=== PATIENT | female | born 1985 | race Caucasian/White ===

== ENCOUNTER 2018-05-18 10:27 | Emergency (ER) | payer OTHER, SELFPAY ==
[2018-05-18 10:27] VITALS: BP 127/81; PULSE 96; RESP 17; TEMP 36.3; O2SAT 96; BMI 43.3
--- NOTE | 2018-05-18 10:45 | CT_ITS ---
STUDY: CT ABDOMEN AND PELVIS WITHOUT CONTRAST REASON FOR EXAM: Female, 32 years old. Right lower quadrant pain. Elevated white count and nausea. RADIATION DOSAGE (If Supplied By Facility): CTDIvol = ( 8.65 ) mGy, DLP = ( 425.80 ) mGycm TECHNIQUE: Transaxial images were obtained from the dome of the diaphragm to the symphysis pubis without oral contrast, and without intravenous contrast. Sagittal and coronal images were reconstructed. Individualized dose optimization techniques were used for this CT. COMPARISON: None. FINDINGS: The visualized lung bases are unremarkable. The visualized portions of the heart are within normal limits. Normal liver. Normal gallbladder and extrahepatic biliary system. Normal spleen. Normal pancreas. Normal bilateral adrenal glands. Normal right kidney. Normal left kidney. Normal visualized stomach. Normal small intestine. Normal colon. The appendix is visualized and appears normal. Normal abdominal aorta. Normal inferior vena cava. There is borderline retroperitoneal lymphadenopathy with enlarged nodes no greater than 10mm in the short axis diameter. Normal urinary bladder. There is a 7.5 cm x 10.7 cm x 10 cm soft tissue mass arising in the lower anterior aspect of the abdomen extending into the pelvis. This lies anterior to the uterus and superior to the urinary bladder. Correlation with ultrasound is recommended. This may represent a large ovarian mass most likely arising from the right side. The left ovary measures 3.9 cm x 3.2 cm. Follicles are seen within it. Normal abdominal wall. Normal osseous structures. CT/Abdomen/Pelvis without Cont IMPRESSION: Large soft tissue mass arising from the lower anterior abdomen and pelvis as described. Correlation with ultrasound is recommended. Electronically Signed: Zach Marie MD at 12:42 EST Tel [phone], Service support ,
--- NOTE | 2018-05-18 10:48 | ED.DCSUM_ITS ---
- ER Visit Summary Date of Service: 05/18/18 Chief Complaint: Acute abdominal pain History of Present Illness: The patient is a 32 F Patient states that last evening she developed pain in the right lower quadrant radiating to her back. States that it went away and then returned this morning around 0500 hours. She is tried Tylenol. She tried some milk of magnesia. She has had nausea and vomiting. No prior abdominal surgeries. She notes her last bowel movement was 2 days ago. She denies any urinary symptoms. She notes that it was painful for her to walk because she could not stand up. Physical Examination: Afebrile vital signs are stable Gen: Well-nourished well-developed Head: Normocephalic atraumatic Eyes: Perrl EOMI ENT: TMs clear no rhinorrhea moist mucous membranes Neck: Supple no lymphadenopathy no JVD nontender CVS: Regular rate rhythm no murmurs normal S1-S2 Respiratory: No distress clear to auscultation bilaterally chest nontender Abdomen: Soft there is mild tenderness to palpation in the suprapubic right lower quadrant region without guarding or rebound nondistended normal bowel sounds no masses Back: Nontender Extremity: Nontender no edema Skin: Normal color no rash Neuro: alert orientated ?3 CN II-XII intact normal strength sensation reflexes gait cerebellar Psych: Normal affect normal mood Test Results: CBC with a white count of 14.1. Urinalysis showed 1+ bacteria but no overt infection or significant contamination. Test was negative. CT of the abdomen pelvis without contrast demonstrated a masslike structure probably coming from the right ovary. A pelvic ultrasound was obtained which demonstrated a 10.3 x 7.9 x 7.3 cm septated cyst on the right. There was difficult to decipher normal ovarian tissue but there was blood flow in the area. The patient has been resting comfortably. She does not appear to have o bvious torsion at this time. I spoke with Dr. De La Cruz who will plan on seeing the patient tomorrow. Patient will be given torsion instructions. Impression: 1. Acute pelvic pain 2. Right ovarian mass This note was generated with [employer] software. It may contain incorrect words, spelling, and punctuation that were not noted in review of the chart prior to signing ED Disposition - Plan for ED Patient: Disposition: Home or Assisted Living Chief Complaint: Abd Pain Instructions: ED Cyst Ovarian Referrals: Dianna Pinto MD [Primary Care Provider] - Sharmila Diaz MD [STAFF PHYSICIAN] - As soon as possible Additional Instructions: If your pain becomes severe please return to the emergency department immediately
[2018-05-18 11:06] LABS: Mucous, Urine 0 SEEN /hpf (<or=2+); Red Blood Cells-Urine 0 SEEN /hpf (0-5)
[2018-05-18 11:08] LABS: Absolute Lymphocyte Count 1.14 X10^3/ul (0.83-4.51); Absolute Neutrophil Count 12.7 X10^3/uL (2.0-7.7); Basophil# 0.02 X10^3/uL; Basophil% 0.1 % (0-1); Hematocrit 39.4 % (37-47); Hemoglobin 12.8 g/dl (12.0-15.0); Lymphocyte # 1.14 X10^3/ul (4.0); Lymphocyte % 8.1 % (19-41); Mean Corp Hgb Conc 32.5 g/gl (32-36); Mean Corpuscular Hgb 29.5 pg (27.0-32.0); Mean Corpuscular Volume 90.8 fL (81-99); Mean Platelet Vol. 10.3 fl (6.2-12.0); Monocyte# 0.23 X10^3/uL; Monocyte% 1.6 % (0-10); Neutrophil # 12.66 X10^3/uL (2.7-7.7); Neutrophil % 90.1 % (47-70); Platelet Count 312 K/mm3 (150-450); RBC Distribution Width CV 13.1 % (11.6-14.6); RBC Distribution Width SD 43.6 fl (35.1-43.9); Red Blood Count 4.34 M/mm3 (4.2-5.4); White Blood Count 14.1 K/mm3 (4.4-11.0)
[2018-05-18 11:10] LABS: POSITIVE COUNT NO; POSITIVE DIFFERENTIAL NO; POSITIVE MORPHOLOGY NO
[2018-05-18 11:12] LABS: Color, Urine Yellow (Yellow)
[2018-05-18 11:13] LABS: Specific Gravity, Urine 1.005 (1.002-1.030); Urine Clarity Sl Cldy (Clear)
[2018-05-18 11:14] LABS: Leukocyte Esterase-Dipstick Trace /ul (Negative); Nitrite-Dipstick Negative (Negative); Protein-Dipstick 15 mg/dl (Negative)
[2018-05-18 11:14] LABS: Anion Gap 10 (5-15); BUN 15 mg/dL (7-18); BUN/Creat Ratio 18.5 RATIO (10-20); Chloride 103 mmol/L (98-107); Creatinine, Serum 0.81 mg/dL (0.55-1.02); EST Glomerular Filtration Rate 87 mL/min (>60); Est Glom Filt Rate - Afr Amer 105 mL/min (>60); Estimated Creatinine Clearance 153.31 ml/min; Glucose 119 mg/dL (74-106); Potassium 3.6 mmol/L (3.5-5.1); Sodium Level 137 mmol/L (136-145)
[2018-05-18 11:15] LABS: Glucose, Dipstick NEGATIVE (Normal); Urine Bilirubin Dipstick Negative (Negative); Urine Urobilinogen Normal (Normal)
[2018-05-18 11:16] LABS: Occult Blood-Urine 250 /ul (Negative)
[2018-05-18 11:18] LABS: Ketone-Dipstick 150 mg/dl (Negative)
[2018-05-18] MEDS: 0.9% Normal Saline 1,000 ML 250 ML IV (11:22)
[2018-05-18] MEDS: Ondansetron 4 MG/2 ML Vial IV (11:22)
[2018-05-18] MEDS: Ketorolac 30 MG/ML Syringe IV (11:22)
[2018-05-18 11:23] LABS: White Blood Cells 0-5 SEEN /hpf (0-5)
[2018-05-18 11:24] LABS: Amorphous Sediment 2+; Bacteria 1+ /hpf (None Seen); Squamous Epithelial Cells - UA 0-5 SEEN /hpf (5-10)
[2018-05-18 11:36] LABS: Pregnancy, Serum, hCG Quali. NEGATIVE Negative (0-9 Nonpreg)
--- NOTE | 2018-05-18 12:47 | US_ITS ---
STUDY: ULTRASOUND TRANSVAGINAL CLINICAL: Female, [address] RLQ PAIN X 2 DAYS INTERMITTENT ELEVATED WBC COUNT NAUSEA TECHNIQUE: Transvaginal COMPARISON: CT abdomen and pelvis without contrast May 18, 2018 FINDINGS: Normal uterine size measuring 6.3 x 4.9 x 3.2 cm. It is retroverted. There are no myometrial masses. Normal endometrial thickness measuring 12 mm. There are no endometrial masses, and there is no fluid in the endometrial cavity. Normal uterine cervix. Nabothian cysts noted. Normal right ovary, measuring 11.4 x 9.5 x 7.8 cm. There is a septated cyst measuring approximately 10.3 x 7.9 x 7.3 cm. On several images it appears there is communication between cystic areas. There does appear blood flow around this tissue but is difficult to identify normal ovarian tissue. Normal left ovary, measuring 4.3 x 3.6 x 2.6 cm cm. There is a dominant cyst measuring 2.9 x 2.3 x 2.3 cm. There is blood flow seen in the subjacent left ovary by Doppler. Mild fluid in the pelvis. US/Transvaginal Non- IMPRESSION: There is a large cystic lesion seen in the right adnexa with an apparent septation which correlates with the prior CT exam. On CT exam it had a Hounsfield unit measurement of 23 which suggests internal proteinaceous content, possible blood. The right ovary cannot be from this structure nor seen is a cyst separate structure and is not clearly identified. On several images it appears there is communication between the cystic structures, perhaps there is hydrosalpinx. The size of this lesion and complicating features warrants further evaluation. MRI would be most helpful in further investigation. The contralateral left ovary also demonstrated a cystic lesion with increased Hounsfield units on CT exam Electronically Signed: Magdalene Weiss MD at 14:43 EST , Service support ,
[2018-05-18 15:03] VITALS: BP 115/80; PULSE 83; RESP 17; O2SAT 98
== END 2018-05-18 15:45 | disposition home or self-care (01) ==
PROVIDERS: Emergency Provider Emergency Medicine; Family Provider Family Medicine; PCP Family Medicine
DX: R10.2 Pelvic and perineal pain (principal); N83.201 Unspecified ovarian cyst, right side; R11.2 Nausea with vomiting, unspecified
CPT/HCPCS: 74176; 76830; 80048; 81001; 84703; 85025; 93976; 96361; 96374; 96375; 99283; J7030; A4216; J2405

== ENCOUNTER 2018-06-30 12:00 | Emergency (ER) | payer OTHER, SELFPAY ==
[2018-06-30 12:02] VITALS: BP 127/100; PULSE 100; RESP 16; TEMP 36.5; O2SAT 98; BMI 27.4
--- NOTE | 2018-06-30 12:33 | ED.VISSUMM ---
- ER Visit Summary Date of Service: 06/30/18 Chief Complaint: [] Depressed suicidal ideation concern nonverbal during counseling session History of Present Illness: The patient is a 32 F [] the patient has a history of depression anxiety apparently in some type of a cognitive stress disorder that causes her to basically get very depressed where she will not speak to people she refers to come to get by writing. She apparently went to the [facility] counseling center to see her counselors today she was not in any distress, she began talking to them but later refused to talk to them and begin writing down short phrases there was indication on the part of the counts of the patient may be suicidal then the patient simply stopped responding or writing anything would just stare out into space at which time she was brought to the hospital On arrival her vital signs are unremarkable 120/80 she is afebrile she is looking around she actually got out of the wheelchair got undressed and into the gown was initially community with nurses and refused to speak to anybody chose to write things down a piece of paper, she indicates to be of this paper communication that she is having her cognitive stress process affect her to where she does not feels if she can speak, she has no complaints she does admit she has thought of suicide, she also indicates she has been quite worried and nervous over the fact that she is been having some pelvic pain and needs to have some tests done to determine if she has a serious condition such as cancer and that procedure is rescheduled for a few weeks from now, in addition we try to obtain history from the [facility] counselor who came with her who is actually a caser up and will try to obtain additional information from the [facility] counseling system the patient suffered no recent type of trauma or change in any of her health status Physical Examination: [] v Signs are as above General, no distress resting comfortably HEENT is generally unremarkable The neck is supple no adenopathy Cardiovascular, regular rate and rhythm Lungs, clear bilateral Abdomen, soft nontender Extremities, no clubbing cyanosis or edema Neurologic, awake alert answering questions appropriately initially then later she began to look about moving her extremities but would not communicate verbally prefer to write things down as above moving all 4 extremities Test Results: [] Screening labs UA and head CT unremarkable She is intermittently speaking to staff Emergency Department Course and Treatment: [] Given all the above mental health screening evaluation tests are ordered we have asked the mental health service to see her to determine best disposition options Treatment Plan: [] Disposition: [] The mental health evaluation Impression: [] History of depression suicidal ideation, nonverbal state This note was generated with [employer] dictation software. It may contain incorrect words, spelling, and punctuation that were not noted in review of the chart prior to signing ED Disposition - Plan for ED Patient: Chief Complaint: Mental Health Referrals: Dianna Pinto MD [Primary Care Provider] -
--- NOTE | 2018-06-30 12:37 | ED.DCSUM_ITS ---
- ER Visit Summary Date of Service: 06/30/18 Chief Complaint: [] Depressed suicidal ideation concern nonverbal during counseling session History of Present Illness: The patient is a 32 F [] the patient has a history of depression anxiety apparently in some type of a cognitive stress disorder that causes her to basically get very depressed where she will not speak to people she refers to come to get by writing. She apparently went to the [facility] counseling center to see her counselors today she was not in any distress, she began talking to them but later refused to talk to them and begin writing down short phrases there was indication on the part of the counts of the patient may be suicidal then the patient simply stopped responding or writing anything would just stare out into space at which time she was brought to the hospital On arrival her vital signs are unremarkable 120/80 she is afebrile she is looking around she actually got out of the wheelchair got undressed and into the gown was initially community with nurses and refused to speak to anybody chose to write things down a piece of paper, she indicates to be of this paper communication that she is having her cognitive stress process affect her to where she does not feels if she can speak, she has no complaints she does admit she has thought of suicide, she also indicates she has been quite worried and nervous over the fact that she is been having some pelvic pain and needs to have some tests done to determine if she has a serious condition such as cancer and that procedure is rescheduled for a few weeks from now, in addition we try to obtain history from the [facility] counselor who came with her who is actually a director case and will try to obtain additional information from the [facility] counseling system the patient suffered no recent type of trauma or change in any of her health status Physical Examination: [] v Signs are as above General, no distress resting comfortably HEENT is generally unremarkable The neck is supple no adenopathy Cardiovascular, regular rate and rhythm Lungs, clear bilateral Abdomen, soft nontender Extremities, no clubbing cyanosis or edema Neurologic, awake alert answering questions appropriately initially then later she began to look about moving her extremities but would not communicate verbally prefer to write things down as above moving all 4 extremities Test Results: [] Screening labs UA and head CT unremarkable She is intermittently speaking to staff Emergency Department Course and Treatment: [] Given all the above mental health screening evaluation tests are ordered we have asked the mental health service to see her to determine best disposition options Treatment Plan: [] Disposition: [] The mental health evaluation Impression: [] History of depression suicidal ideation, nonverbal state This note was generated with [employer] dictation software. It may contain incorrect words, spelling, and punctuation that were not noted in review of the chart prior to signing ED Disposition - Plan for ED Patient: Chief Complaint: Mental Health Referrals: Dianna Pinto MD [Primary Care Provider] -
--- NOTE | 2018-06-30 12:54 | CT_ITS ---
STUDY: CT BRAIN WITHOUT CONTRAST REASON FOR EXAM: Female, 32 years old. Altered mental status. Suicidal ideation. RADIATION DOSAGE (If Supplied By Facility): CTDIvol = ( 44.99 ) mGy, DLP = ( 711.75 ) mGycm TECHNIQUE: Transaxial CT imaging of the brain was performed without administration of intravenous contrast material. Individualized dose optimization techniques were used for this CT. COMPARISON: None. FINDINGS: Normal soft tissue structures. Normal calvarium. Normal size ventricles and extra-axial spaces for the patient's age. Normal white matter tracts of the cerebral hemispheres. Normal basal ganglia and thalami. Normal brainstem. Normal cerebellum. There is no intracranial hemorrhage. There are no findings of an acute ischemic infarction. Normal visualized paranasal sinuses. CT/Brain/Head without Contrast IMPRESSION: Normal unenhanced CT scan of the brain. Electronically Signed: Zach Marie MD at 13:50 EST Tel [phone], Service support ,
[2018-06-30 12:59] LABS: Absolute Lymphocyte Count 2.23 X10^3/ul (0.83-4.51); Absolute Neutrophil Count 4.3 X10^3/uL (2.0-7.7); Basophil# 0.02 X10^3/uL; Basophil% 0.3 % (0-1); Eosinophil# 0.05 X10^3/uL; Eosinophils% 0.7 % (0-5); Hemoglobin 14.1 g/dl (12.0-15.0); Lymphocyte # 2.23 X10^3/ul (4.0); Lymphocyte % 31.1 % (19-41); Mean Corp Hgb Conc 33.6 g/gl (32-36); Mean Corpuscular Volume 89.4 fL (81-99); Mean Platelet Vol. 9.7 fl (6.2-12.0); Monocyte# 0.59 X10^3/uL; Monocyte% 8.2 % (0-10); Neutrophil # 4.26 X10^3/uL (2.7-7.7); Neutrophil % 59.6 % (47-70); POSITIVE COUNT NO; POSITIVE DIFFERENTIAL NO; POSITIVE MORPHOLOGY NO; Platelet Count 290 K/mm3 (150-450); RBC Distribution Width CV 13.1 % (11.6-14.6); White Blood Count 7.2 K/mm3 (4.4-11.0)
--- NOTE | 2018-06-30 13:07 | ED.RN ---
TALKED WITH PT MOTHER WITH PERMISSION GIVEN PER PT. MOTHER STATES PT HAS BEEN UP AND DOWN. STATES PT LIVING WITH BOYFRIEND WHO HAS ISSUES HIMSELF. PT HAS TOLD MOTHER THAT SHE WOULD LIKE TO HAVE HER LIFE END.PT HAS ALSO TALKED ABOUT WANTING TO .MOTHER PHONE NUMBER IS [phone].STATES NEVER DX WITH ANYTHING BUT DEF HAS ANXIETY AND DEPRESSION
[2018-06-30 13:10] LABS: BUN 11 mg/dL (7-18); BUN/Creat Ratio 12.7 RATIO (10-20); Chloride 107 mmol/L (98-107); Creatinine, Serum 0.86 mg/dL (0.55-1.02); EST Glomerular Filtration Rate 81 mL/min (>60); Est Glom Filt Rate - Afr Amer 97 mL/min (>60); Estimated Creatinine Clearance 74.28 ml/min; Glucose 102 mg/dL (74-106); Potassium 3.8 mmol/L (3.5-5.1); Sodium Level 138 mmol/L (136-145)
[2018-06-30 13:11] LABS: Anion Gap 8 (5-15)
[2018-06-30 13:17] LABS: Pregnancy, Serum, hCG Quali. NEGATIVE Negative (0-9 Nonpreg)
--- NOTE | 2018-06-30 14:02 | ED.RN ---
[employer] OFFICER ASKED TO CALL [facility]. PT CLEAR
--- NOTE | 2018-06-30 14:04 | NURSING ---
CALLED [facility]. TALKED TO SOHA.
[2018-06-30 14:24] LABS: Amphetamine Urine VISTA NEGATIVE (<1000 ng/mL); Barbiturate Urine VISTA NEGATIVE (< 200 ng/mL); Benzodiazepine Urine VISTA NEGATIVE (< 200 ng/mL); Cocaine Urine VISTA NEGATIVE (< 300 ng/mL); Ecstacy Urine VISTA NEGATIVE (< 500 ng/mL); Methadone Urine VISTA NEGATIVE (< 300 ng/mL); PCP Urine VISTA NEGATIVE (< 25 ng/mL); THC Urine VISTA NEGATIVE (< 50 ng/mL); Vista UDS pH Range 5
--- NOTE | 2018-06-30 15:24 | NURSING ---
ADOLPH, CRISIS, CALLED. SOMEONE WILL BE OVER
--- NOTE | 2018-06-30 15:45 | NURSING ---
ADOLPH, CRISIS, HERE
--- NOTE | 2018-06-30 15:49 | ED.RN ---
PT MOTHER CALLS IN FOR UPDATE. ADOLPH FROM CRISES TALKING WITH HER. SITTER REMAINS WITH PT
[2018-06-30 15:50] VITALS: RESP 18
[2018-06-30 17:39] VITALS: BP 110/78; PULSE 76; RESP 18; O2SAT 98
[2018-06-30] MEDS: Acetaminophen 500 MG Tablet 1000 MG PO (18:32)
[2018-06-30 20:40] VITALS: BP 114/76; PULSE 67; RESP 18; O2SAT 96
--- NOTE | 2018-06-30 20:46 | ED.RN ---
PER PT REQUEST, CAR G[employer]MEZ GIVEN TO SECURITY FOR KEEPING UNTIL MOTHER CAN PICK THEM UP IN THE MORNING. MOTHER INFORMED SHE NEEDS TO BRING AN ID WITH HER FOR PICKING UP KEYS
[2018-06-30 21:18] VITALS: BP 114/76; PULSE 67; RESP 19; O2SAT 99
== END 2018-06-30 21:19 | disposition home or self-care (01) ==
PROVIDERS: Emergency Provider Emergency Medicine; Family Provider Family Medicine; PCP Family Medicine
DX: F32.9 Major depressive disorder, single episode, unspecified (principal); F41.9 Anxiety disorder, unspecified; R45.851 Suicidal ideations
CPT/HCPCS: 70450; 80048; 80307; 80320; 84703; 85025; 99282; G0480

== ENCOUNTER 2024-08-01 19:33 | Emergency (ER) | payer MEDICAID, SELFPAY ==
[2024-08-01 19:34] VITALS: BP 118/80; PULSE 81; RESP 16; TEMP 36.6; O2SAT 99; BMI 31.7
[2024-08-01] MEDS: Ondansetron ODT 4 MG Tablet PO (20:15)
--- NOTE | 2024-08-01 21:36 | EX.ED.DYSGE1 ---
HPI History of Present Illness Chief Complaint: Nausea/Vomiting Narrative Narrative: Patient is a 30-year-old female who presents to the emergency department with a chief complaint of nausea vomiting. Patient states that this started earlier this afternoon. States that earlier today she had her bottom wisdom teeth removed they gave her ibuprofen and antibiotic. States that she tried to take these and had not eaten before and developed nausea vomiting and this continued throughout the evening therefore she came here further evaluation management. [facility] Medical History Hx of benign neoplasm Home Medications ?Medication ?Instructions ?Recorded ?Last Taken ?Type clindamycin HCl 300 mg capsule 300 mg PO 3XD 08/01/24 Unknown History ibuprofen 800 mg tablet 800 mg PO Q6H PRN pain 08/01/24 Unknown History ondansetron 4 mg disintegrating 4 mg PO Q6H PRN nausea and 08/01/24 Unknown Rx tablet vomiting #30 tabs Allergy/AdvReac Type Severity Reaction Status Date / Time amoxicillin Allergy RASH Verified 08/01/24 19:36 Surgical History Hx of carpal tunnel repair Hx of wisdom tooth extraction Social History Smoking Status: Never smoker ROS ROS ED ROS Narrative Constitutional: Denies any fevers, chills, headaches, lightness, dizziness Cardiovascular: Denies chest pain or palpitations Respiratory: Denies cough shortness of breath Abdomen: Complains of nausea vomiting denies diarrhea : Denies any urinary symptoms Neurological: Denies numbness, weakness, tingling Musculoskeletal: Denies back pain Skin: Denies rashes or lesions EXAM Physical Exam Narrative Exam Narrative: General: Patient is lying in bed rest comfortably did not appear to be acute distress Head: Atraumatic, normocephalic Eyes, ears, nose, throat: PERRL bilaterally, no conjunctival injection noted, surgical site of wisdom teeth removed has clot over the site no active bleeding noted Neck: Soft, supple, trachea midline Cardiovascular: Regular rate and rhythm Respiratory: Clear to auscultation bilaterally Abdomen: Soft, nondistended, mild tenderness palpation epigastric region no rebound or guarding on exam Extremities: +5/5 strength noted in the bilateral upper and lower extremities, no pedal edema no exam Neurological: Patient following commands knew that she was at [facility] the year is 2024 Skin: Warm, dry, intact no rashes or lesions noted Const Vital Signs: 08/01/24 19:34 Temperature 97.8 F Temperature Source Oral Pulse Rate 81 Respiratory Rate 16 Blood Pressure 118/80 Blood Pressure Mean 92 Pulse Ox 99 Oxygen Delivery Method Room Air MDM MDM MDM Narrative Medical decision making narrative: Patient is a 30-year-old female who presents to the emerged part with a chief complaint of acute onset of nausea vomiting not feeling well earlier today. On the differential diagnose includes but limited to nausea vomiting secondary to viral gastroenteritis, taking antibiotics on an empty stomach. Should be given Zofran and be reevaluated. On reevaluation the patient she states that she has taken small sips but states that she has some abdominal pain and more nausea again. Will place a IV for fluids antiemetic and blood work. Once this is obtained reviewed she will be reevaluated. Patient CBC was reviewed and showed a white blood cell count of 21,000 this is likely secondary to her surgery that she had today, hemoglobin is 14, platelet count was noted to be normal at 342. Patient sodium normal at 130, potassium 4.2, creatinine normal at 0.96. Patient's AST and ALT were normal at 16 and 14 respectively, total bilirubin normal at 0.90. Patient's lipase normal at 26, urinalysis reviewed showed no evidence of infection and test was negative. Repeat abdominal exam at 10:49 PM was benign patient did tolerate oral challenge here in the emergency department. On reevaluation the patient and she is feeling better she would like to go home at this point time. She is advised to take her prescriptions as prescribed and take the medications with food. She is encouraged return with worsening symptoms or concerns otherwise she is to follow-up with her primary care physician outpatient setting. She is agreeable this plan all question concerns answered discharged home in stable condition. Lab Data Labs: Laboratory Results - last 24 hr 08/01/24 21:50 WBC 21.8 H RBC 4.78 Hgb 14.0 Hct 42.8 MCV 89.5 MCH 29.3 MCHC 32.7 RDW Std Deviation 42.1 RDW Coeff of Matt 12.9 Plt Count 342 MPV 10.1 Immature Gran % (Auto) 0.300 Neut % (Auto) 84.8 H Lymph % (Auto) 9.0 L Andrew % (Auto) 5.7 Eos % (Auto) 0.0 Baso % (Auto) 0.2 Absolute Neuts (auto) 18.5 H Absolute Lymphs (auto) 1.97 Nucleated RBC % 0 Sodium 138 Potassium 4.2 Chloride 106 Carbon Dioxide 26.0 Anion Gap 7 BUN 15 Creatinine 0.96 Estim Creat Clear Calc 71.23 Est GFR (MDRD) Af Amer 83 Est GFR (MDRD) Non-Af 69 BUN/Creatinine Ratio 15.6 Glucose 122 H Calcium 9.9 Total Bilirubin 0.90 AST 16 ALT 14 Alkaline Phosphatase 80 Total Protein 8.9 H Albumin 4.2 Globulin 4.7 H Albumin/Globulin Ratio 0.9 Lipase 26 Urine Color Yellow Urine Clarity Clear Urine pH 7.0 Ur Specific [place] 1.010 Urine Protein 15 H Urine Glucose (UA) Normal Urine Ketones Negative Urine Occult Blood 25 H Urine Nitrite Negative Urine Bilirubin Negative Urine Urobilinogen Normal Ur Leukocyte Esterase 25 H Urine RBC 0-5 SEEN Urine WBC 0-5 SEEN Ur Squamous Epith Cells 5-10 SEEN Urine Bacteria RARE Urine Mucus 0 SEEN Urine Test Negative Discharge Plan Triage Chief Complaint: Nausea/Vomiting ED Provider: Sukhdeep Neal Dx/Rx/DC Orders Clinical Impression: Nausea & vomiting, [place] teeth removed Prescriptions: New ondansetron 4 mg tablet,disintegrating 4 mg PO Q6H PRN (Reason: nausea and vomiting) Qty: 30 0RF No Action clindamycin HCl 300 mg capsule 300 mg PO 3XD ibuprofen 800 mg tablet 800 mg PO Q6H PRN (Reason: pain) Patient Comments: [NO ORIGINAL SIG] Primary Care Provider: Jaelyn Laguna Referrals: Jaelyn Laguna, [employer] [Primary Care Provider] - Activity Restrictions/Additional Instructions: Start with bland diet such as toast crackers soups and advance as tolerated. Use the prescription Zofran as prescribed. Take your other prescriptions as prescribed take these with food. Return with worsening symptoms or any concerns. Follow-up your doctor now presenting. Print Language: Khmer Disposition Disposition: Home, Self Care
[2024-08-01] MEDS: 0.9% Normal Saline (1000mL) 1,000 ML 999 ML IV (21:49)
[2024-08-01] MEDS: Metoclopramide 10 MG/2 ML Vial IV (21:49)
[2024-08-01 22:09] LABS: Mucous, Urine 0 SEEN /hpf (<or=2+)
[2024-08-01 22:17] LABS: Absolute Lymphocyte Count 1.97 X10^3/uL (0.83-4.51); Absolute Neutrophil Count 18.5 X10^3/uL (2.0-7.7); Basophil# 0.05 X10^3/uL; Basophil% 0.2 % (0-1); Hematocrit 42.8 % (37-47); Lymphocyte # 1.97 X10^3/ul (0.83-4.51); Mean Corp Hgb Conc 32.7 g/dL (32-36); Mean Corpuscular Hgb 29.3 pg (27.0-32.0); Mean Corpuscular Volume 89.5 fL (81-99); Mean Platelet Vol. 10.1 fl (6.2-12.0); Monocyte# 1.24 X10^3/uL; Monocyte% 5.7 % (0-10); NRBC Flagged by Analyzer 0 % (0-5); Neutrophil # 18.49 X10^3/uL (2.7-7.7); Neutrophil % 84.8 % (47-70); Platelet Count 342 K/mm3 (150-450); RBC Distribution Width CV 12.9 % (11.6-14.6); RBC Distribution Width SD 42.1 fl (35.1-43.9); Red Blood Count 4.78 M/mm3 (4.2-5.4); White Blood Count 21.8 K/mm3 (4.4-11.0)
[2024-08-01 22:23] LABS: Color, Urine Yellow (Yellow); Glucose, Dipstick Normal (Normal); Ketone-Dipstick Negative (Negative); Leukocyte Esterase-Dipstick 25 /ul (Negative); Nitrite-Dipstick Negative (Negative); Occult Blood-Urine 25 /ul (Negative); Protein-Dipstick 15 mg/dl (Negative); Urine Bilirubin Dipstick Negative (Negative); Urine Clarity Clear (Clear); Urine Urobilinogen Normal (Normal)
[2024-08-01 22:28] LABS: ALB/GLOB Ratio 0.9 RATIO (0.9-2.4); AST(SGOT) 16 U/L (15-37); Alanine Aminotransfer ALT/SGPT 14 U/L (13-56); Albumin, Serum 4.2 g/dL (3.2-5.0); Alkaline Phosphatase 80 U/L (45-117); Anion Gap 7 (5-15); BUN 15 mg/dL (7-18); BUN/Creat Ratio 15.6 RATIO (10-20); Calcium,Total 9.9 mg/dL (8.5-10.1); Chloride 106 mmol/L (98-107); Creatinine, Serum 0.96 mg/dL (0.55-1.02); EST Glomerular Filtration Rate 69 mL/min (>60); Est Glom Filt Rate - Afr Amer 83 mL/min (>60); Estimated Creatinine Clearance 71.23 ml/min; Globulin 4.7 g/dL (2.2-4.2); Glucose 122 mg/dL (74-106); Lipase 26 U/L (13-75); Potassium 4.2 mmol/L (3.5-5.1); Protein, Total 8.9 g/dL (6.4-8.2); Sodium Level 138 mmol/L (136-145)
[2024-08-01 22:36] LABS: Bacteria RARE /hpf (None Seen); Internal QC Validated? YES +Cl - CLEAR BKGD; Pregnancy, Urine Negative Negative; Red Blood Cells-Urine 0-5 SEEN /hpf (0-5); Squamous Epithelial Cells - UA 5-10 SEEN /hpf (5-10); White Blood Cells 0-5 SEEN /hpf (0-5)
[2024-08-01 22:48] VITALS: BP 108/66; PULSE 82; RESP 16; TEMP 37.2; O2SAT 99
[2024-08-01] MEDS: Ketorolac 30 MG/ML Syringe IV (22:52)
== END 2024-08-01 22:57 | disposition home or self-care (01) ==
PROVIDERS: Emergency Provider Emergency Medicine; PCP Nurse Practitioner Family; Visit Provider Emergency Medicine
DX: R11.2 Nausea with vomiting, unspecified (principal); Z98.890 Other specified postprocedural states
CPT/HCPCS: 80053; 81001; 81025; 83690; 85025; 96361; 96374; 96375; 99283; A4216